=== PATIENT | male | born 1985 | race Two or more races ===

== ENCOUNTER → 2016-12-26 | Outpatient (REF) | payer OTHER | LOC: M SMT 10:00 | PROVIDERS: ATTEND Urology | DX: Z30.2 Encounter for sterilization (principal) ==

== ENCOUNTER → 2017-02-15 | Outpatient (REF) | payer OTHER ==
[2017-02-15 11:24] LABS: IMMMOTILE SPERM CENTRIFUGED ABSENT (ABSENT); IMMOTILE SPERM ABSENT (ABSENT); MOTILE SPERM ABSENT (ABSENT); MOTILE SPERM CENTRIFUGED ABSENT (ABSENT)
== END ==
LOC: M SMT 11:05
PROVIDERS: ATTEND Urology
DX: Z98.52 Vasectomy status (principal)

== ENCOUNTER → 2017-04-25 | Outpatient (RCR) | payer OTHER | LOC: M PT 11:29 | PROVIDERS: ATTEND Physician Assistant | DX: Z51.89 Encounter for other specified aftercare (principal); M25.551 Pain in right hip; M25.552 Pain in left hip ==

== ENCOUNTER 2017-05-06 07:00 | Outpatient (RCR) | payer OTHER | END 2017-05-25 | LOC: M PT 07:00 | PROVIDERS: ATTEND Physician Assistant | DX: Z51.89 Encounter for other specified aftercare (principal); M25.551 Pain in right hip ==

== ENCOUNTER 2017-06-21 08:30 | Outpatient (RCR) | payer OTHER | END 2017-06-25 | LOC: M PT 08:30 | PROVIDERS: ATTEND Physician Assistant | DX: Z51.89 Encounter for other specified aftercare (principal); M25.551 Pain in right hip ==

== ENCOUNTER 2017-07-23 07:00 | Outpatient (RCR) | payer OTHER | END 2017-07-25 | LOC: M PT 07:00 | PROVIDERS: ATTEND Physician Assistant | DX: Z51.89 Encounter for other specified aftercare (principal); M25.551 Pain in right hip; M25.552 Pain in left hip ==

== ENCOUNTER → 2017-09-25 | Outpatient (CLI) | payer OTHER ==
[~2017-09-25] MED LIST: CONRAY-43 43% 50ML VIAL (Q9960) As Ordered; LIDOCAINE 1% MDV 20ML VIAL As Ordered; TRIAMCINOLONE ACETONIDE SUSP 40 MG/ML VIAL (J3301) As Ordered
== END ==
LOC: M RADPRO 10:41
DX: M25.851 Other specified joint disorders, right hip (principal)
CPT/HCPCS: 20610

== ENCOUNTER 2018-04-17 06:59 | Outpatient (RCR) | payer OTHER | END 2018-04-25 | LOC: M PT 06:59 | DX: M25.851 Other specified joint disorders, right hip (principal); Z51.89 Encounter for other specified aftercare | CPT/HCPCS: 97110 ==

== ENCOUNTER 2018-04-30 07:55 | Outpatient (RCR) | payer OTHER | END 2018-05-25 | LOC: M PT 07:55 | DX: Z47.89 Encounter for other orthopedic aftercare (principal) | CPT/HCPCS: 97110 ==

== ENCOUNTER 2018-05-29 08:11 | Outpatient (RCR) | payer OTHER | END 2018-06-25 | LOC: M PT 08:11 | DX: M25.851 Other specified joint disorders, right hip (principal); Z48.89 Encounter for other specified surgical aftercare | CPT/HCPCS: 97110 ==

== ENCOUNTER 2018-07-02 07:44 | Outpatient (RCR) | payer OTHER | END 2018-07-25 | LOC: M PT 07:44 | DX: M25.851 Other specified joint disorders, right hip (principal); Z48.89 Encounter for other specified surgical aftercare ==

== ENCOUNTER → 2018-08-25 | Outpatient (RCR) | payer OTHER | LOC: M PT 07-29 07:27 | PROVIDERS: ATTEND Physician Assistant | DX: M25.841 Other specified joint disorders, right hand (principal); Z18.89 Other specified retained foreign body fragments ==